=== PATIENT | female | born 1940 | race Hispanic/Latino ===

== ENCOUNTER 2017-08-24 13:24 | Inpatient (IN) | payer MEDICARE ==
[2017-08-24 14:03] LABS: Basophils # (Auto) 0.1 K/mm3 (0.0-0.1); Basophils % (Auto) 0.9 % (0.0-1.8); Eosinophils # (Auto) 0.3 K/mm3 (0.0-0.4); Eosinophils % (Auto) 3.2 % (0.0-4.3); Hematocrit 30.6 % (30.3-42.9); Hemoglobin 9.7 gm/dl (10.1-14.3); Lymphocytes # (Auto) 1.1 K/mm3 (1.2-5.4); Lymphocytes % (Auto) 11.8 % (13.4-35.0); Mean Corpuscular HGB Conc 32 % (30-34); Mean Corpuscular Hemoglobin 31 pg (28-32); Mean Corpuscular Volume 99 fl (79-97); Monocytes # (Auto) 0.5 K/mm3 (0.0-0.8); Monocytes % (Auto) 5.6 % (0.0-7.3); Platelet Count 518 K/mm3 (140-440); Red Cell Distribution Width 16.2 % (13.2-15.2)
[2017-08-24 14:15] LABS: BUN/Creatinine Ratio 31; Blood Urea Nitrogen 25 mg/dL (7-17); Calcium 8.2 mg/dL (8.4-10.2); Hemolysis Index 5
--- NOTE | 2017-08-24 14:32 | XRay Report ---
ROUTINE CHEST, TWO VIEWS: HISTORY: Shortness of breath. The lungs are mildly hyperinflated suggesting underlying emphysema. Pulmonary markings are prominent throughout the lingula which is a new finding since 07/18/15. This may represent an early pneumonia. Otherwise, the lungs are clear. No pleural effusion or pneumothorax. Heart size is within normal limits. The bony structures are demineralized. IMPRESSION: Emphysema. Probable early left lung pneumonia.
[2017-08-24] MEDS ORDERED: ATIVAN PO ONE (14:52)
[2017-08-24] MEDS ORDERED: ATROVENT IH ONE (14:55)
[2017-08-24] MEDS ORDERED: PROVENTIL IH ONE (14:55)
[2017-08-24] MEDS ORDERED: LEVAQUIN 500MG/100ML 500 MG/100 ML BAG IV ONE (15:00)
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
--- NOTE | 2017-08-24 15:12 | History and Physical Report ---
History of Present Illness Chief complaint: She cant breathe, so her doctor sent us here History of present illness: 77 YO Female with HTN, COPD, Chronic Respiratory Failure on Home Oxygen, CAD S/ P Stent, OA, Nicotine Dependence, CVA, [place], Dementia presents to ED for evaluation. Pt is confused and unable to give detailed history. Pt family at bedside and provides history. As per caregiver, the patient has experienced shortness of breath and productive cough with green sputum for the past 3 weeks , with progressively worsening symptoms over the same time frame. Patient has also experienced fever to 101.2F as well as pulse oximetry in the 70's. Pt seen and evaluated in architectural project captain's office today and found to have hypoxemic respiratory failure. Pt sent to [facility] for further care and evaluation. Pt seen and evaluated in ED and found to have Pneumonia, Acute hypoxemic Respiratory Failure, as well as COPD exacerbation. Pt prognosis discussed with family and family elects to make patient DNR. Past History Past Medical History: acute [place], arthritis, CAD, COPD, hypertension, stroke, other (HTN, COPD, Chronic Respiratory Failure on Home Oxygen, CAD S/P Stent, OA , Nicotine Dependence, CVA, [place], Dementia) Past Surgical History: , Other (cardiac stent) Social history: . denies: smoking, alcohol abuse, prescription drug abuse Family history: no significant family history (reviewed) Medications and Allergies Allergies Allergy/AdvReac Type Severity Reaction Status Date / Time Penicillins Allergy Rash Verified 10/18/14 17:40 adhesive tape AdvReac Hives Verified 07/18/15 11:38 Home Medications Medication Instructions Recorded Confirmed Last Taken Type Fluticasone/Salmeterol [Advair 1 puff IH BID 30 Days disk.w.dev 06/14/1308/24/17 Rx Diskus 250-50 mcg] Aspirin [Aspirin BABY CHEW TAB] 81 mg PO QDAY 06/10/14 08/24/17 08/24/17 History Carvedilol [Coreg] 3.125 mg PO BID 06/10/14 08/24/17 08/24/17 History Isosorbide Mononitrate [Isosorbide 30 mg PO QDAY 06/10/14 08/24/17 08/24/17 History Mononitrate ER] Lovastatin [Altoprev] 40 mg PO QDAY 06/10/14 08/24/17 08/24/17 History Doxepin [SINEquan] 50 mg PO QHS 08/24/17 08/24/17 08/24/17 History Fluticasone/Salmeterol [Advair 1 puff IH BID 08/24/17 08/24/17 08/24/17 History Diskus 250-50 mcg] Levothyroxine [Synthroid] 112 mcg PO QAM 08/24/17 08/24/17 08/24/17 History Lisinopril [Zestril TAB] 40 mg PO QDAY 08/24/17 08/24/17 08/24/17 History Ranitidine HCl [Heartburn Relief] 150 mg PO DAILY 08/24/17 08/24/17 08/24/17 History Rivastigmine Tartrate [Exelon] 1.5 mg PO BID 08/24/17 08/24/17 08/24/17 History Active Meds: Active Medications Levofloxacin/Dextrose (Levaquin 500mg/100ml) 500 mg in 100 mls @ 100 mls/hr IV ONCE ONE Stop: 08/24/17 15:59 Review of Systems Constitutional: fever, no weight loss, no weight gain, no chills Ears, nose, mouth and throat: no ear pain, no ear discharge, no tinnitis, no decreased hearing, no nose pain, no nasal congestion Breasts: no change in shape, no swelling, no mass Cardiovascular: no chest pain, no orthopnea, no palpitations, no rapid/ irregular heart beat, no edema, no syncope Respiratory: cough, cough with sputum, excessive sputum, shortness of breath, no hemoptysis Gastrointestinal: no abdominal pain, no nausea, no vomiting, no diarrhea, no constipation Genitourinary Female: no pelvic pain, no flank pain, no dysuria, no urinary frequency, no urgency Rectal: no pain, no incontinence, no bleeding Musculoskeletal: no neck stiffness, no neck pain, no shooting arm pain, no arm numbness/tingling, no low back pain, no shooting leg pain Integumentary: no rash, no pruritis, no redness, no sores, no wounds, no jaundice Neurological: no head injury, no transient paralysis, no paralysis, no weakness , no parathesias, no numbness, no tingling, no seizures Psychiatric: no anxiety, no memory loss, no change in sleep habits, no sleep disturbances, no insomnia, no hypersomnia, no change in appetite Endocrine: no cold intolerance, no heat intolerance, no polyphagia, no excessive thirst, no polydipsia, no polyuria, no nocturia Hematologic/Lymphatic: no easy bruising, no easy bleeding, no lymphadenopathy, no lymphedema, no thrombophilia Allergic/Immunologic: no urticaria, no allergic rhinitis, no wheezing, no persistent infections, no anaphylaxis Exam - Constitutional Vitals: Temp Pulse Resp BP Pulse Ox 98.1 F 89 18 115/65 86 08/24/17 13:34 08/24/17 13:34 08/24/17 13:34 08/24/17 13:34 08/24/17 13:34 General appearance: Present: mild distress, cachectic - EENT Eyes: Present: PERRL ENT: hearing intact, clear oral mucosa - Neck Neck: Present: supple, normal ROM - Respiratory Respiratory effort: labored Respiratory: bilateral: diminished, rhonchi - Cardiovascular Heart Sounds: Present: S1 & S2. Absent: rub, click - Extremities Extremities: pulses symmetrical, No edema Peripheral Pulses: within normal limits - Abdominal General gastrointestinal: Present: soft, non-tender, non-distended, normal bowel sounds Female genitourinary: Present: normal - Integumentary Integumentary: Present: clear, warm, dry - Musculoskeletal Musculoskeletal: generalized weakness - Psychiatric Psychiatric: no intact judgment & insight, no memory intact - Neurologic Neurologic: CNII-XII intact, moves all extremities, no gait normal Results - Labs CBC & Chem 7: 08/24/17 13:47 08/24/17 13:44 Labs: Abnormal lab results 08/24/17 08/24/17 Range/Units 13:44 13:47 RBC 3.10 L (3.65-5.03) M/mm3 Hgb 9.7 L (10.1-14.3) gm/dl MCV 99 H (79-97) fl RDW 16.2 H (13.2-15.2) % Plt Count 518 H (140-440) K/mm3 Lymph % (Auto) 11.8 L (13.4-35.0) % Lymph # 1.1 L (1.2-5.4) K/mm3 Seg Neutrophils % 78.5 H (40.0-70.0) % BUN 25 H (7-17) mg/dL Glucose 209 H (65-100) mg/dL Calcium 8.2 L (8.4-10.2) mg/dL Assessment and Plan - Patient Problems (1) Acute respiratory failure Current Visit: Yes Status: Acute Qualifiers: Respiratory failure complication: hypoxia Qualified Code(s): J96.01 - Acute respiratory failure with hypoxia Plan to address problem: Supplemental oxygen, nebulizer therapy, Chest x ray, NIPPV as clinically indicated, pulse oximetry. (2) COPD with exacerbation Current Visit: Yes Status: Acute Plan to address problem: IV antibiotics, IV steroids, supplemental oxygen, nebulizer therapy, chest x ray. (3) Pneumonia Current Visit: Yes Status: Acute Qualifiers: Laterality: left Plan to address problem: IV antibiotics, blood cultures, supplemental oxygen, nebulizer therapy, chest x ray, pulse oximetry, (4) Nicotine dependence Current Visit: Yes Status: Acute Qualifiers: Substance use status: in withdrawal Plan to address problem: Pt declines to pick quit date, supportive care. (5) DVT prophylaxis Current Visit: No Status: Acute Plan to address problem: SCD to BLE
[2017-08-24] MEDS ORDERED: PROVENTIL IH PRN (15:13)
[2017-08-24] MEDS ORDERED: ZOFRAN IV PRN (15:13)
[2017-08-24] MEDS ORDERED: TYLENOL PO PRN (15:13)
[2017-08-24] MEDS ORDERED: SODIUM CHLORIDE FLUSH SYRINGE 10 ML IV PRN (15:13)
[2017-08-24] MEDS ORDERED: NON-FORMULARY (Ipratropium Bromide [Atrovent Hfa] 12.9 GM) IH PRN (15:18)
[2017-08-24] MEDS ORDERED: ULTRAM PO PRN (15:18)
[2017-08-24] MEDS ORDERED: NORCO 5/325 PO PRN (15:18)
--- NOTE | 2017-08-24 16:28 | XRay Report ---
FINAL REPORT EXAM: XR KNEE 3V LT HISTORY: pain after fall TECHNIQUE: 3 views of left knee. PRIORS: None. FINDINGS: Diffuse osteopenia. Marked medial and mild patellofemoral joint space narrowing and variable marginal spurring in all 3 joint compartments, most pronounced in the medial joint space. No apparent fracture or dislocation. Soft tissues grossly unremarkable. IMPRESSION: 1. No acute osseous abnormality. 2. Degenerative changes.
[2017-08-24] MEDS ORDERED: LEVAQUIN 750MG/150ML 750 MG/150 ML BAG IV SCH (18:00)
[2017-08-24] MEDS ORDERED: NON-FORMULARY (Fluticasone/Salmeterol [Advair Diskus 250-50 Mcg] 1 PUFF) IH SCH (22:00)
[2017-08-24] MEDS ORDERED: NON-FORMULARY (Ramipril [Ramipril] 10 MG) PO SCH (22:00)
[2017-08-24] MEDS: PULMICORT IH SCH (22:30)
[2017-08-24] MEDS: BROVANA NEBU IH SCH (22:30)
[2017-08-24] MEDS: NEURONTIN PO SCH (22:32)
[2017-08-24] MEDS: COREG PO SCH (22:33)
[2017-08-24] MEDS: ZESTRIL PO SCH (22:33)
[2017-08-24] MEDS: PRAVACHOL PO SCH (22:34)
[2017-08-24] MEDS: SODIUM CHLORIDE FLUSH SYRINGE 10 ML IV SCH (22:34)
[2017-08-25] MEDS: PULMICORT IH SCH ×2 (07:31→20:56)
[2017-08-25] MEDS: BROVANA NEBU IH SCH ×2 (07:31→20:56)
[2017-08-25] MEDS: COREG PO SCH ×2 (08:02→23:53)
[2017-08-25] MEDS: NEURONTIN PO SCH ×3 (08:02→23:52)
[2017-08-25] MEDS: IMDUR PO SCH (08:03)
[2017-08-25] MEDS: SPIRIVA IH SCH (09:15)
[2017-08-25] MEDS ORDERED: NON-FORMULARY (Ranitidine Hcl [Zantac] 300 MG) PO SCH (10:00)
[2017-08-25] MEDS ORDERED: NON-FORMULARY (Lovastatin [Altoprev] 40 MG) PO SCH (10:00)
[2017-08-25] MEDS ORDERED: NACL ONE ×2 (13:32→13:38)
[2017-08-25] MEDS: ZOLOFT PO SCH (15:51)
[2017-08-25] MEDS: ZESTRIL PO SCH ×2 (15:52→23:55)
[2017-08-25] MEDS: PEPCID PO SCH (15:52)
[2017-08-25] MEDS: BABY ASPIRIN PO SCH (15:53)
[2017-08-25] MEDS: SODIUM CHLORIDE FLUSH SYRINGE 10 ML IV SCH ×2 (15:54→23:55)
[2017-08-25] MEDS: NORVASC PO SCH (16:04)
--- NOTE | 2017-08-25 16:28 | Cat Scan Report ---
FINAL REPORT EXAM: CT ANGIO CHEST HISTORY: pulmonary embolisim TECHNIQUE: Spiral CTA of the chest after the uneventful administration of IV contrast. Multiplanar reformations. 100 mL Omnipaque IV. PRIORS: None. FINDINGS: Chest: The main and bilateral proximal pulmonary arteries are normally opacified without endoluminal filling defects. Diffuse coronary artery calcifications. No apparent aneurysm, pseudoaneurysm or aortic dissection. No significant lymph node enlargement or axillary adenopathy. Lungs show diffuse, bullous and paraseptal emphysematous changes bilaterally. Some volume loss in the left hemithorax, with possible mucous plugging in central bronchi to mid-lower lung. Variable, but diffuse reticulo-nodular, pleuro-parenchymal opacities in the left mid-lower lung may represent postinflammatory change, fibrosis or scarring. No discrete parenchymal mass, focal consolidation or pleural effusions. No apparent pneumothorax. Probable bilateral renal cysts, largest measuring approximately 1.7 cm in the right kidney. Remainder of visualized bowel grossly unremarkable. Diffuse osteopenia and degenerative change in the thoracic spine. IMPRESSION: 1. No evidence of large vessel or central pulmonary emboli. Coronary artery calcifications. 2. Diffuse emphysematous change, with associated volume loss and probable pleuro-parenchymal postinflammatory change, fibrosis or scarring in left hemithorax. Correlate clinically.
--- NOTE | 2017-08-25 21:43 | Progress Note ---
Assessment and Plan Assessment and plan: 77 YO Female with HTN, COPD, Chronic Respiratory Failure on Home Oxygen, CAD S/ P Stent, OA, Nicotine Dependence, CVA, [place], Dementia presents to ED for evaluation. Pt is confused and unable to give detailed history. Pt family at bedside and provides history. As per caregiver, the patient has experienced shortness of breath and productive cough with green sputum for the past 3 weeks , with progressively worsening symptoms over the same time frame. Patient has also experienced fever to 101.2F as well as pulse oximetry in the 70's. Pt seen and evaluated in radio repairer domestic's office today and found to have hypoxemic respiratory failure. Pt sent to [facility] for further care and evaluation. Pt seen and evaluated in ED and found to have Pneumonia, Acute hypoxemic Respiratory Failure, as well as COPD exacerbation. Pt prognosis discussed with family and family elects to make patient DNR. - Patient Problems (1) Acute respiratory failure Elevated D.dimer - check CTA AND lower ext DVT Supplemental oxygen, nebulizer therapy, Chest x ray, NIPPV as clinically indicated, pulse oximetry. Pulmonary consult wean oxygen (2) COPD with exacerbation IV antibiotics, IV steroids, supplemental oxygen, nebulizer therapy, chest x ray. (3) Pneumonia IV antibiotics, blood cultures, supplemental oxygen, nebulizer therapy, chest x ray, pulse oximetry, (4) Nicotine dependence Pt declines to pick quit date, supportive care. (5) DVT prophylaxis Current Visit: No Status: Acute Plan to address problem: SCD to BLE Anticipate discharge in 24-48hrs History Interval history: Patient seen and examined, remains with mild distress, exertional dyspnea. very lathergic. Denies any chest pain. nausea or vomiting. Hospitalist Physical - Constitutional Vitals: Temp Pulse Resp BP Pulse Ox 98.6 F 67 14 132/48 96 08/24/17 20:38 08/25/17 20:47 08/25/17 20:47 08/24/17 22:33 08/25/17 20:47 General appearance: Present: mild distress, cachectic, other (frail appearing) - EENT Eyes: Present: PERRL, EOM intact ENT: hearing intact, clear oral mucosa - Neck Neck: Present: supple, normal ROM - Respiratory Respiratory effort: other (diminshed) Respiratory: bilateral: diminished - Cardiovascular Rhythm: regular Heart Sounds: Present: S1 & S2. Absent: systolic murmur - Extremities Extremities: pulses intact (lower ext by doppler only), pulses symmetrical, No edema, normal temperature, normal color Peripheral Pulses: abnormal (decreased) - Abdominal General gastrointestinal: soft, non-tender, non-distended - Integumentary Integumentary: Present: clear, dry, pale - Psychiatric Psychiatric: appropriate mood/affect - Neurologic Neurologic: CNII-XII intact Results - Labs CBC & Chem 7: 08/24/17 13:47 08/24/17 13:44 Labs: Laboratory Last Values WBC 9.3 K/mm3 (4.5-11.0) 08/24/17 13:47 RBC 3.10 M/mm3 (3.65-5.03) L 08/24/17 13:47 Hgb 9.7 gm/dl (10.1-14.3) L 08/24/17 13:47 Hct 30.6 % (30.3-42.9) 08/24/17 13:47 MCV 99 fl (79-97) H 08/24/17 13:47 MCH 31 pg (28-32) 08/24/17 13:47 MCHC 32 % (30-34) 08/24/17 13:47 RDW 16.2 % (13.2-15.2) H 08/24/17 13:47 Plt Count 518 K/mm3 (140-440) H 08/24/17 13:47 Lymph % (Auto) 11.8 % (13.4-35.0) L 08/24/17 13:47 [place] % (Auto) 5.6 % (0.0-7.3) 08/24/17 13:47 Eos % (Auto) 3.2 % (0.0-4.3) 08/24/17 13:47 Baso % (Auto) 0.9 % (0.0-1.8) 08/24/17 13:47 Lymph # 1.1 K/mm3 (1.2-5.4) L 08/24/17 13:47 [place] # 0.5 K/mm3 (0.0-0.8) 08/24/17 13:47 Eos # 0.3 K/mm3 (0.0-0.4) 08/24/17 13:47 Baso # 0.1 K/mm3 (0.0-0.1) 08/24/17 13:47 Seg Neutrophils % 78.5 % (40.0-70.0) H 08/24/17 13:47 Seg Neutrophils # 7.3 K/mm3 (1.8-7.7) 08/24/17 13:47 D-Dimer 732.74 ng/mlDDU (0-234) H 08/24/17 15:28 Sodium 138 mmol/L (137-145) 08/24/17 13:44 Potassium 3.7 mmol/L (3.6-5.0) 08/24/17 13:44 Chloride 98.3 mmol/L (98-107) 08/24/17 13:44 Carbon Dioxide 27 mmol/L (22-30) 08/24/17 13:44 Anion Gap 16 mmol/L 08/24/17 13:44 BUN 25 mg/dL (7-17) H 08/24/17 13:44 Creatinine 0.8 mg/dL (0.7-1.2) 08/24/17 13:44 Estimated GFR > 60 ml/min 08/24/17 13:44 BUN/Creatinine Ratio 31 % 08/24/17 13:44 Glucose 209 mg/dL (65-100) H 08/24/17 13:44 Calcium 8.2 mg/dL (8.4-10.2) L 08/24/17 13:44 - Imaging and Cardiology CT scan - chest: pending
[2017-08-25] MEDS: PRAVACHOL PO SCH (23:53)
[2017-08-26] MEDS: BROVANA NEBU IH SCH ×2 (07:34→19:17)
[2017-08-26] MEDS: PULMICORT IH SCH ×2 (07:34→19:17)
[2017-08-26] MEDS: SPIRIVA IH SCH (08:50)
[2017-08-26] MEDS: NEURONTIN PO SCH ×3 (08:51→20:35)
[2017-08-26] MEDS: PEPCID PO SCH (09:53)
[2017-08-26] MEDS: COREG PO SCH ×2 (09:54→22:09)
[2017-08-26] MEDS: ZOLOFT PO SCH (09:54)
[2017-08-26] MEDS: BABY ASPIRIN PO SCH (09:54)
[2017-08-26] MEDS: NORVASC PO SCH (09:55)
[2017-08-26] MEDS: IMDUR PO SCH (09:55)
[2017-08-26] MEDS: ZESTRIL PO SCH ×2 (09:55→22:10)
[2017-08-26] MEDS: SODIUM CHLORIDE FLUSH SYRINGE 10 ML IV SCH ×2 (09:56→22:11)
[2017-08-26] MEDS: LEVAQUIN PO SCH (10:48)
--- NOTE | 2017-08-26 12:46 | Event Note ---
Date: 08/26/[address] Lima in office. Will change consult to his group. Thanks.
--- NOTE | 2017-08-26 14:44 | Progress Note ---
Assessment and Plan - Patient Problems (1) Acute respiratory failure Current Visit: Yes Status: Acute Qualifiers: Respiratory failure complication: hypoxia Qualified Code(s): J96.01 - Acute respiratory failure with hypoxia Plan to address problem: Acute respiratory failure secondary to COPD exacerbation and pneumonia. Continue nebulizers oxygen, antibiotics Levaquin and steroids. She clearly not ready to go home today. I think patient has advanced COPD however. Physical exam appears cachectic with anorexia increased bony prominences in's shoulders and abdomen (2) COPD with exacerbation Current Visit: Yes Status: Acute Plan to address problem: COPD appears to be in advanced stages continue nebulizer steroid taper empiric antibiotic coverage Brovana (3) Nicotine dependence Current Visit: Yes Status: Acute Qualifiers: Substance use status: in withdrawal Plan to address problem: Educated on importance of smoking cessation. Patient not motivated to stop now (4) Pneumonia Current Visit: Yes Status: Acute Qualifiers: Laterality: left Plan to address problem: Most likely community-acquired pneumonia continue Levaquin. Patient is not in sepsis. (5) HTN (hypertension) Current Visit: No Status: Chronic Plan to address problem: Fairly well controlled. History Interval history: Patient today upset states she was told she was going home today. Patient is not into any acute distress right now but remains into with significant rhonchi and rales. Patient is going down for ultrasound of the lower extremity arterial evaluation of the lower extremity. I could not appreciate any cold interval exam and patient did have a palpable pulse dorsalis pedis +2 posterior tibial +1 Hospitalist Physical - Constitutional Vitals: Temp Pulse Resp BP Pulse Ox 98.0 F 62 16 90/67 96 08/26/17 07:55 08/26/17 10:00 08/26/17 10:00 08/26/17 09:55 08/26/17 10:00 General appearance: Present: mild distress, cachectic, other (frail appearing) - EENT Eyes: Present: PERRL, EOM intact ENT: clear oral mucosa, poor dentition, no oropharyngeal erythema, no thrush, no ulcerations, no edentulous - Neck Neck: Present: supple, normal ROM, carotid bruits. Absent: enlarged thyroid, masses or JVD - Respiratory Respiratory: bilateral: diminished, rales, rhonchi - Cardiovascular Rhythm: regular - Extremities Extremities: no ischemia, pulses intact, pulses symmetrical, No edema, normal temperature, normal color, Full ROM Extremity abnormal: other ( i see no evidence of decrease vascular supply.) - Abdominal General gastrointestinal: soft, non-tender, non-distended - Psychiatric Psychiatric: appropriate mood/affect, cooperative, agitated - Neurologic Neurologic: CNII-XII intact, moves all extremities Results - Labs CBC & Chem 7: 08/24/17 13:47 08/24/17 13:44 Labs: Laboratory Last Values WBC 9.3 K/mm3 (4.5-11.0) 08/24/17 13:47 RBC 3.10 M/mm3 (3.65-5.03) L 08/24/17 13:47 Hgb 9.7 gm/dl (10.1-14.3) L 08/24/17 13:47 Hct 30.6 % (30.3-42.9) 08/24/17 13:47 MCV 99 fl (79-97) H 08/24/17 13:47 MCH 31 pg (28-32) 08/24/17 13:47 MCHC 32 % (30-34) 08/24/17 13:47 RDW 16.2 % (13.2-15.2) H 08/24/17 13:47 Plt Count 518 K/mm3 (140-440) H 08/24/17 13:47 Lymph % (Auto) 11.8 % (13.4-35.0) L 08/24/17 13:47 [place] % (Auto) 5.6 % (0.0-7.3) 08/24/17 13:47 Eos % (Auto) 3.2 % (0.0-4.3) 08/24/17 13:47 Baso % (Auto) 0.9 % (0.0-1.8) 08/24/17 13:47 Lymph # 1.1 K/mm3 (1.2-5.4) L 08/24/17 13:47 [place] # 0.5 K/mm3 (0.0-0.8) 08/24/17 13:47 Eos # 0.3 K/mm3 (0.0-0.4) 08/24/17 13:47 Baso # 0.1 K/mm3 (0.0-0.1) 08/24/17 13:47 Seg Neutrophils % 78.5 % (40.0-70.0) H 08/24/17 13:47 Seg Neutrophils # 7.3 K/mm3 (1.8-7.7) 08/24/17 13:47 D-Dimer 732.74 ng/mlDDU (0-234) H 08/24/17 15:28 Sodium 138 mmol/L (137-145) 08/24/17 13:44 Potassium 3.7 mmol/L (3.6-5.0) 08/24/17 13:44 Chloride 98.3 mmol/L (98-107) 08/24/17 13:44 Carbon Dioxide 27 mmol/L (22-30) 08/24/17 13:44 Anion Gap 16 mmol/L 08/24/17 13:44 BUN 25 mg/dL (7-17) H 08/24/17 13:44 Creatinine 0.8 mg/dL (0.7-1.2) 08/24/17 13:44 Estimated GFR > 60 ml/min 08/24/17 13:44 BUN/Creatinine Ratio 31 % 08/24/17 13:44 Glucose 209 mg/dL (65-100) H 08/24/17 13:44 Calcium 8.2 mg/dL (8.4-10.2) L 08/24/17 13:44
[2017-08-26] MEDS: PRAVACHOL PO SCH (22:09)
[2017-08-27] MEDS: BROVANA NEBU IH SCH ×2 (07:38→22:00)
[2017-08-27] MEDS: PULMICORT IH SCH ×2 (07:38→22:00)
[2017-08-27] MEDS: SPIRIVA IH SCH (07:38)
[2017-08-27] MEDS: NEURONTIN PO SCH ×3 (08:37→20:41)
[2017-08-27] MEDS: PEPCID PO SCH (09:02)
[2017-08-27] MEDS: BABY ASPIRIN PO SCH (09:03)
[2017-08-27] MEDS: NORVASC PO SCH (09:04)
[2017-08-27] MEDS: ZOLOFT PO SCH (09:04)
[2017-08-27] MEDS: ZESTRIL PO SCH ×2 (09:04→22:47)
[2017-08-27] MEDS: COREG PO SCH ×2 (09:05→22:46)
[2017-08-27] MEDS: IMDUR PO SCH (09:05)
[2017-08-27] MEDS: SODIUM CHLORIDE FLUSH SYRINGE 10 ML IV SCH ×2 (09:06→22:48)
--- NOTE | 2017-08-27 10:01 | Consultation ---
History of Present Illness Consult date: 08/27/17 Requesting physician: GUY NEVES Reason for consult: COPD (with acute exacerbation), pneumonia, other (acute on chronic respiratory faillure) History of present illness: 77 YO Female with HTN, COPD, Chronic Respiratory Failure on Home Oxygen, CAD S/ P Stent, OA, Nicotine Dependence, CVA, PR, Dementia presents to ED for evaluation. Pt is confused and unable to give detailed history. Pt family at bedside and provides history. As per caregiver, the patient has experienced shortness of breath and productive cough with green sputum for the past 3 weeks , with progressively worsening symptoms over the same time frame. Patient has also experienced fever to 101.2F as well as pulse oximetry in the 70's. Pt seen and evaluated in chart picker's office on Mondayand found to have hypoxemic respiratory failure. Pt sent to [facility] for further care and evaluation. Pt seen and evaluated in ED and found to have Pneumonia, Acute hypoxemic Respiratory Failure, as well as COPD exacerbation. Past History Past Medical History: acute PR, arthritis, CAD, COPD, hypertension, stroke, other (HTN, COPD, Chronic Respiratory Failure on Home Oxygen, CAD S/P Stent, OA , Nicotine Dependence, CVA, PR, Dementia) Past Surgical History: , Other (cardiac stent) Social history: . denies: smoking, alcohol abuse, prescription drug abuse Family history: no significant family history (reviewed) Medications and Allergies Allergies Allergy/AdvReac Type Severity Reaction Status Date / Time Penicillins Allergy Rash Verified 10/18/14 17:40 adhesive tape AdvReac Hives Verified 07/18/15 11:38 Home Medications Medication Instructions Recorded Confirmed Last Taken Type Fluticasone/Salmeterol [Advair 1 puff IH BID 30 Days disk.w.dev 06/14/1308/24/17 Rx Diskus 250-50 mcg] Aspirin [Aspirin BABY CHEW TAB] 81 mg PO QDAY 06/10/14 08/24/17 08/24/17 History Carvedilol [Coreg] 3.125 mg PO BID 06/10/14 08/24/17 08/24/17 History Isosorbide Mononitrate [Isosorbide 30 mg PO QDAY 06/10/14 08/24/17 08/24/17 History Mononitrate ER] Lovastatin [Altoprev] 40 mg PO QDAY 06/10/14 08/24/17 08/24/17 History Doxepin [SINEquan] 50 mg PO QHS 08/24/17 08/24/17 08/24/17 History Fluticasone/Salmeterol [Advair 1 puff IH BID 08/24/17 08/24/17 08/24/17 History Diskus 250-50 mcg] Levothyroxine [Synthroid] 112 mcg PO QAM 08/24/17 08/24/17 08/24/17 History Lisinopril [Zestril TAB] 40 mg PO QDAY 08/24/17 08/24/17 08/24/17 History Ranitidine HCl [Heartburn Relief] 150 mg PO DAILY 08/24/17 08/24/17 08/24/17 History Rivastigmine Tartrate [Exelon] 1.5 mg PO BID 08/24/17 08/24/17 08/24/17 History Active Meds: Active Medications Acetaminophen (Tylenol) 650 mg PO Q4H PRN PRN Reason: Pain MILD(1-3)/Fever >100.5/LAROSE Acetaminophen/Hydrocodone Bitart ([place] 5/325) 1 each PO Q6HR PRN PRN Reason: Pain Albuterol (Proventil) 2.5 mg IH Q4HRT PRN PRN Reason: Shortness Of Breath Amlodipine Besylate (Norvasc) 5 mg PO QDAY [facility] Last Admin: 08/27/17 09:04 Dose: Not Given Arformoterol Tartrate (Brovana Nebu) 15 mcg IH Q12HRT [facility] Last Admin: 08/27/17 07:38 Dose: 15 mcg Aspirin (Baby Aspirin) 81 mg PO QDAY [facility] Last Admin: 08/27/17 09:03 Dose: 81 mg Budesonide (Pulmicort) 0.5 mg IH Q12HRT [facility] Last Admin: 08/27/17 07:38 Dose: 0.5 mg Carvedilol (Coreg) 3.125 mg PO BID [facility] Last Admin: 08/27/17 09:05 Dose: Not Given Famotidine (Pepcid) 40 mg PO QDAY [facility] Last Admin: 08/27/17 09:02 Dose: 40 mg Gabapentin (Neurontin) 200 mg PO TID [facility] Last Admin: 08/27/17 08:37 Dose: 200 mg Isosorbide Mononitrate (Imdur) 30 mg PO QDAY [facility] Last Admin: 08/27/17 09:05 Dose: Not Given Levofloxacin (Levaquin) 750 mg PO Q48HR [facility] Last Admin: 08/26/17 10:48 Dose: 750 mg Lisinopril (Zestril) 20 mg PO BID [facility] Last Admin: 08/27/17 09:04 Dose: Not Given Methylprednisolone Sodium Succinate (Solu-Medrol) 40 mg IV Q12HR [facility] Last Admin: 08/27/17 09:03 Dose: 40 mg Ondansetron HCl (Zofran) 4 mg IV Q8H PRN PRN Reason: Nausea And Vomiting Pravastatin Sodium (Pravachol) 40 mg PO QHS [facility] Last Admin: 08/26/17 22:09 Dose: 40 mg Sertraline HCl (Zoloft) 50 mg PO QDAY [facility] Last Admin: 08/27/17 09:04 Dose: 50 mg Sodium Chloride (Sodium Chloride Flush Syringe 10 Ml) 10 ml IV BID [facility] Last Admin: 08/27/17 09:06 Dose: 10 ml Sodium Chloride (Sodium Chloride Flush Syringe 10 Ml) 10 ml IV PRN PRN PRN Reason: LINE FLUSH Last Admin: 08/26/17 10:49 Dose: 10 ml Tiotropium [place] (Spiriva) 1 puff IH QDAY [facility] Last Admin: 08/27/17 07:38 Dose: 1 puff Tramadol HCl (Ultram) 50 mg PO Q4HR PRN PRN Reason: Pain Physical Examination Vital signs: Vital Signs Temp Pulse Resp BP Pulse Ox 98.1 F 89 18 115/65 86 08/24/17 13:34 08/24/17 13:34 08/24/17 13:34 08/24/17 13:34 08/24/17 13:34 Results - Laboratory Findings CBC and BMP: 08/24/17 13:47 08/24/17 13:44 PT/INR, D-dimer D-Dimer 732.74 ng/mlDDU (0-234) H 08/24/17 15:28 Abnormal lab findings: Abnormal Labs 08/24/17 08/24/17 08/24/17 13:44 13:47 15:28 RBC 3.10 L Hgb 9.7 L MCV 99 H RDW 16.2 H Plt Count 518 H Lymph % (Auto) 11.8 L Lymph # 1.1 L Seg Neutrophils % 78.5 H D-Dimer 732.74 H BUN 25 H Glucose 209 H Calcium 8.2 L Assessment and Plan Acute hypoxemic respiratory failure Pneumonia COPD with acute exacerbation
--- NOTE | 2017-08-27 13:55 | Progress Note ---
Assessment and Plan - Patient Problems (1) Acute respiratory failure Current Visit: Yes Status: Acute Qualifiers: Respiratory failure complication: hypoxia Qualified Code(s): J96.01 - Acute respiratory failure with hypoxia Plan to address problem: Acute respiratory failure secondary to COPD exacerbation and pneumonia. Continue nebulizers oxygen, antibiotics Levaquin and steroids. She still not ready for discharge. Patient is significant wheezing and cough. Suspect home 1 -2 days. Patient has end-stage COPD. I did speak with family patient is on 5 L at home. I do not see COPD getting any better especially as patient continues to smoke Today. I think patient has advanced COPD however. (2) COPD with exacerbation Current Visit: Yes Status: Acute Plan to address problem: COPD appears to be in advanced stages continue nebulizer steroid taper empiric antibiotic coverage Analia (3) Nicotine dependence Current Visit: Yes Status: Acute Qualifiers: Substance use status: in withdrawal Plan to address problem: Educated on importance of smoking cessation. Patient not motivated to stop now (4) Pneumonia Current Visit: Yes Status: Acute Qualifiers: Laterality: left Plan to address problem: Continue empiric antibiotic coverage. Patient has less cough ryan afebrile (5) HTN (hypertension) Current Visit: No Status: Chronic Plan to address problem: Fairly well controlled. History Interval history: Patient much more calm today much less agitated clinically looks much better today. No productive cough no fever chills still has advanced COPD wheezing coughing Hospitalist Physical - Constitutional Vitals: Temp Pulse Resp BP Pulse Ox 96.0 F L 51 L 16 97/54 94 08/27/17 07:48 08/27/17 10:00 08/27/17 10:00 08/27/17 09:05 08/27/17 10:00 General appearance: Present: mild distress, cachectic, other (frail appearing) - EENT Eyes: Present: PERRL, EOM intact ENT: hearing intact, clear oral mucosa - Neck Neck: Present: supple, normal ROM - Respiratory Respiratory: bilateral: diminished, wheezing - Cardiovascular Rhythm: regular Heart Sounds: Present: S1 & S2 - Extremities Extremities: no ischemia, pulses intact Peripheral Pulses: within normal limits - Abdominal General gastrointestinal: soft, non-tender, normal bowel sounds, other (scaphoid ), no distended, no rigid, no hepatomegaly - Integumentary Integumentary: Present: clear, warm, dry - Psychiatric Psychiatric: appropriate mood/affect - Neurologic Neurologic: CNII-XII intact, other (poor cognition) Results - Labs CBC & Chem 7: 08/24/17 13:47 08/24/17 13:44 Labs: Laboratory Last Values WBC 9.3 K/mm3 (4.5-11.0) 08/24/17 13:47 RBC 3.10 M/mm3 (3.65-5.03) L 08/24/17 13:47 Hgb 9.7 gm/dl (10.1-14.3) L 08/24/17 13:47 Hct 30.6 % (30.3-42.9) 08/24/17 13:47 MCV 99 fl (79-97) H 08/24/17 13:47 MCH 31 pg (28-32) 08/24/17 13:47 MCHC 32 % (30-34) 08/24/17 13:47 RDW 16.2 % (13.2-15.2) H 08/24/17 13:47 Plt Count 518 K/mm3 (140-440) H 08/24/17 13:47 Lymph % (Auto) 11.8 % (13.4-35.0) L 08/24/17 13:47 [place] % (Auto) 5.6 % (0.0-7.3) 08/24/17 13:47 Eos % (Auto) 3.2 % (0.0-4.3) 08/24/17 13:47 Baso % (Auto) 0.9 % (0.0-1.8) 08/24/17 13:47 Lymph # 1.1 K/mm3 (1.2-5.4) L 08/24/17 13:47 [place] # 0.5 K/mm3 (0.0-0.8) 08/24/17 13:47 Eos # 0.3 K/mm3 (0.0-0.4) 08/24/17 13:47 Baso # 0.1 K/mm3 (0.0-0.1) 08/24/17 13:47 Seg Neutrophils % 78.5 % (40.0-70.0) H 08/24/17 13:47 Seg Neutrophils # 7.3 K/mm3 (1.8-7.7) 08/24/17 13:47 D-Dimer 732.74 ng/mlDDU (0-234) H 08/24/17 15:28 Sodium 138 mmol/L (137-145) 08/24/17 13:44 Potassium 3.7 mmol/L (3.6-5.0) 08/24/17 13:44 Chloride 98.3 mmol/L (98-107) 08/24/17 13:44 Carbon Dioxide 27 mmol/L (22-30) 08/24/17 13:44 Anion Gap 16 mmol/L 08/24/17 13:44 BUN 25 mg/dL (7-17) H 08/24/17 13:44 Creatinine 0.8 mg/dL (0.7-1.2) 08/24/17 13:44 Estimated GFR > 60 ml/min 08/24/17 13:44 BUN/Creatinine Ratio 31 % 08/24/17 13:44 Glucose 209 mg/dL (65-100) H 08/24/17 13:44 Calcium 8.2 mg/dL (8.4-10.2) L 08/24/17 13:44
[2017-08-27] MEDS: PRAVACHOL PO SCH (22:48)
[2017-08-28] MEDS: COREG PO SCH ×2 (03:17→09:38)
[2017-08-28] MEDS: ZESTRIL PO SCH ×2 (03:18→09:40)
[2017-08-28] MEDS: NEURONTIN PO SCH ×2 (08:13→14:05)
[2017-08-28 08:28] VITALS: BP 107/67
[2017-08-28] MEDS: PULMICORT IH SCH (08:35)
[2017-08-28] MEDS: BROVANA NEBU IH SCH (08:35)
[2017-08-28] MEDS: PEPCID PO SCH (09:36)
[2017-08-28] MEDS: LEVAQUIN PO SCH (09:36)
[2017-08-28] MEDS: ZOLOFT PO SCH (09:36)
[2017-08-28] MEDS: BABY ASPIRIN PO SCH (09:36)
[2017-08-28] MEDS: NORVASC PO SCH (09:39)
[2017-08-28] MEDS: IMDUR PO SCH (09:39)
[2017-08-28] MEDS: SODIUM CHLORIDE FLUSH SYRINGE 10 ML IV SCH (09:40)
--- NOTE | 2017-08-28 10:46 | Discharge Summary ---
Providers - Providers Date of Admission: 08/24/17 15:13 Attending physician: GUY NEVES MD 08/25/17 08:45 Consult to Dietitian/Nutrition [CONS] Routine Physician Instructions: Reason For Exam: Reason for Consult: Poor oral intake 08/26/17 12:44 Consult to Physician [CONS] Routine Comment: ALEX Consulting Provider: DANIEL HOUSTNO Physician Instructions: CALLED CONSULT TO @[id number](FELICITA) Reason For Exam: copd, pneumonia, pt. of yours Primary care physician: AUDIT CLERKS SUPERVISOR Hospitalization Reason for admission: COPD EXACERBATION Condition: Fair Hospital course: 77 YO Female with HTN, COPD, Chronic Respiratory Failure on Home Oxygen, CAD S/ P Stent, OA, Nicotine Dependence, CVA, [place], Dementia presents to ED for evaluation. Pt is confused and unable to give detailed history. Pt family at bedside and provides history. As per caregiver, the patient has experienced shortness of breath and productive cough with green sputum for the past 3 weeks , with progressively worsening symptoms over the same time frame. Patient has also experienced fever to 101.2F as well as pulse oximetry in the 70's. Pt seen and evaluated in adjunct spanish instructor's office on Monday and found to have hypoxemic respiratory failure. Pt sent to [facility] for further care and evaluation. Pt seen and evaluated in ED and found to have Pneumonia, Acute hypoxemic Respiratory Failure, as well as COPD exacerbation. patient was started on treatment with Pna and also noted to have advance COPD. she was made DNR by family. I did speak with the daughter who states that patient quit tobacco use years ago and is non ambulatory but gets around with wheel chair. Tapering dose of steroids was recommended and need to follow with pulmonary outpatient. We also recommended out patient follow up with vascular for suspected lower ext disease Discharge Diagnosis (1) Acute hypoxemic respiratory failure (2) COPD with exacerbation (3) Nicotine dependence (4) Pneumonia (5) HTN (hypertension) Disposition: DC/[place]-06 HOME UNDER HOME HL[facility] Time spent for discharge: 35 mins Core Measure Documentation - Palliative Care Palliative Care/ Comfort Measures: Not Applicable - Core Measures Any of the following diagnoses?: none - VTE Discharge Requirements Deep Vein Thrombosis/Pulmonary Embolism Present on Admission: No Exam - Physical Exam Narrative exam: eneral appearance: Present: mild distress, cachectic, other (frail appearing) - EENT Eyes: Present: PERRL, EOM intact ENT: hearing intact, clear oral mucosa - Neck Neck: Present: supple, normal ROM - Respiratory Respiratory effort: other (diminshed) Respiratory: bilateral: diminished - Cardiovascular Rhythm: regular Heart Sounds: Present: S1 & S2. Absent: systolic murmur - Extremities Extremities: pulses intact (lower ext by doppler only), pulses symmetrical, No edema, normal temperature, normal color Peripheral Pulses: abnormal (decreased) - Abdominal General gastrointestinal: soft, non-tender, non-distended - Integumentary Integumentary: Present: clear, dry, pale - Psychiatric Psychiatric: appropriate mood/affect - Neurologic Neurologic: CNII-XII intact - Constitutional Vitals: Temp Pulse Resp BP Pulse Ox 97.7 F 78 18 107/67 96 08/28/17 07:59 08/28/17 09:40 08/28/17 08:39 08/28/17 09:40 08/28/17 08:39 Plan Activity: advance as tolerated, fall precautions Diet: low fat Special Instructions: record daily weights Follow up with: PRIMARY CARE, [Primary Care Provider] - 7 Days DANIEL HOUSTON MD [Staff Physician] - 7 Days RANDY VALLADARES MD [Staff Physician] - 7 Days Prescriptions: ALBUTEROL NEB's [Proventil 0.083% NEBS] 2.5 mg IH Q4HRT PRN #90 nebu PRN Reason: Shortness Of Breath amLODIPine [Norvasc] 5 mg PO QDAY #30 tablet Fluticasone/Salmeterol [Advair Diskus 250-50 mcg] 1 puff IH BID #30 blst.w.dev Gabapentin [Neurontin] 200 mg PO TID #90 capsule HYDROcodone/APAP 5-325 [[place] 5-325 mg TAB] 1 each PO Q6HR PRN #14 tablet PRN Reason: Pain Prednisone [predniSONE 10 mg (6-Day Pack, 21 Tabs)] 10 mg PO .TAPER #1 tab.ds.pk Sertraline [Zoloft] 50 mg PO QDAY #30 tablet Tiotropium [Spiriva] 1 puff IH QDAY #1 cap traMADol [Ultram 50 MG tab] 50 mg PO Q4HR PRN #14 tablet PRN Reason: Pain Levofloxacin [Levaquin TAB] 750 mg PO Q48HR #3 tablet
--- NOTE | 2017-08-28 14:44 | Progress Note ---
Assessment and Plan Acute hypoxemic respiratory failure Pneumonia COPD with acute exacerbation Tobacco Use Disorder HTN - continue systemic steroids taper - wean supplemental oxygen to keep O2 Sats > 90% - continue bronchodilators with pulmonary hygiene per RT - continue GI & VTE prophylaxis - continue empiric AB's to complete 5-7 day course - continue other care per attending / other cobnsultants ... d/c planning ongoing concurrently ...25" Subjective Date of service: 08/28/17 Principal diagnosis: COPD (with acute exacerbation), pneumonia, other (acute on chronic respirat Interval history: Patient is seen today for: COPD (with acute exacerbation); pneumonia; (acute on chronic respiratory faillure) Seen and examined at bedside; 24 hour events reviewed; nursing and respiratory care staff consulted; resting peacefuly in bend; responds to name; No emesis or overt aspiration; on supplemental oxygen therapy Objective Vital Signs - 12hr 08/28/17 08/28/17 08/28/17 03:17 03:18 06:38 Temperature Pulse Rate 55 L 55 L 53 L Pulse Rate [ Bilateral Throughout] Respiratory Rate Respiratory Rate [Bilateral Throughout] Blood Pressure 160/65 160/65 Blood Pressure 133/42 [Right] O2 Sat by Pulse Oximetry 08/28/17 08/28/17 08/28/17 07:59 08:35 08:36 Temperature 97.7 F Pulse Rate Pulse Rate [ 77 78 Bilateral Throughout] Respiratory 20 Rate Respiratory 18 18 Rate [Bilateral Throughout] Blood Pressure 107/67 Blood Pressure [Right] O2 Sat by Pulse 96 Oximetry 08/28/17 08/28/17 08/28/17 09:38 09:39 09:40 Temperature Pulse Rate 78 78 78 Pulse Rate [ Bilateral Throughout] Respiratory Rate Respiratory Rate [Bilateral Throughout] Blood Pressure 107/67 107/67 107/67 Blood Pressure [Right] O2 Sat by Pulse Oximetry 08/28/17 10:00 Temperature Pulse Rate 52 L Pulse Rate [ Bilateral Throughout] Respiratory 18 Rate Respiratory Rate [Bilateral Throughout] Blood Pressure Blood Pressure [Right] O2 Sat by Pulse 96 Oximetry Constitutional: no acute distress Eyes: non-icteric ENT: oropharynx moist Neck: supple, no lymphadenopathy, no JVD Effort: mildly labored Ascultation: Bilateral: diminished breath sounds, wheezes (faint exp), other ( no accessory muscle use) Percussion: Bilateral: not dull Cardiovascular: regular rate and rhythm, murmur noted Gastrointestinal: normoactive bowel sounds, soft, non-tender, non-distended, other (no HSM) Integumentary: normal Extremities: no cyanosis, no edema, pulses normal, no ischemia or petechiae Neurologic: non-focal exam (grossly), pupils equal and round, CN II-XII normal Psychiatric: other (flat affect) CBC and BMP: 08/24/17 13:47 08/24/17 13:44 ABG, PT/INR, D-dimer: PT/INR, D-dimer D-Dimer 732.74 ng/mlDDU (0-234) H 08/24/17 15:28 Abnormal lab findings: Abnormal Labs 08/24/17 08/24/17 08/24/17 13:44 13:47 15:28 RBC 3.10 L Hgb 9.7 L MCV 99 H RDW 16.2 H Plt Count 518 H Lymph % (Auto) 11.8 L Lymph # 1.1 L Seg Neutrophils % 78.5 H D-Dimer 732.74 H BUN 25 H Glucose 209 H Calcium 8.2 L Chest x-ray: image reviewed (no focal infiltrate)
--- NOTE | 2017-08-30 12:22 | Vascular Lab Report ---
LOWER EXTREMITY VENOUS DUPLEX: REASON FOR EXAM: DVT. COMMENTS ON THE RIGHT: All veins visualized are freely compressible without evidence of internal echogenicity. Flow is spontaneous and phasic throughout. COMMENTS ON THE LEFT: All veins visualized are freely compressible without evidence of internal echogenicity. Flow is spontaneous and phasic throughout. IMPRESSION: No evidence of acute or chronic deep venous thrombosis in either lower extremity.
--- NOTE | 2017-08-30 12:31 | Vascular Lab Report ---
LOWER EXTREMITY ARTERIAL DUPLEX: REASON FOR EXAM: Peripheral arterial disease. COMMENTS ON THE RIGHT: Biphasic waveforms are seen proximally. Biphasic waveforms are seen distally. Tibial artery disease is identified. Scattered plaque is seen throughout. Findings are consistent with mildly abnormal perfusion. COMMENTS ON THE LEFT: Biphasic waveforms are seen proximally. Biphasic waveforms are seen distally. Mild tibial artery occlusive disease identified. Scattered plaque is seen throughout. Findings are consistent with mildly abnormal perfusion. IMPRESSION: Mild arterial occlusive disease in both lower extremities.
== END 2017-08-28 18:15 | disposition home or self-care (01) | DRG 193 ==
LOC: ED 13:24 → 2B-ACE 15:13
PROVIDERS: ADMIT Internal Medicine; ATTEND Internal Medicine
DX: J18.9 Pneumonia, unspecified organism (principal); J96.21 Acute and chronic respiratory failure with hypoxia; J44.1 Chronic obstructive pulmonary disease with (acute) exacerbation; J44.0 Chronic obstructive pulmonary disease with (acute) lower respiratory infection; F03.90 Unspecified dementia, unspecified severity, without behavioral disturbance, psychotic disturbance, mood disturbance, and anxiety; I25.10 Atherosclerotic heart disease of native coronary artery without angina pectoris; Z66 Do not resuscitate; E11.9 Type 2 diabetes mellitus without complications; I10 Essential (primary) hypertension; I25.2 Old myocardial infarction; Z87.891 Personal history of nicotine dependence; Z86.73 Personal history of transient ischemic attack (TIA), and cerebral infarction without residual deficits; Z88.0 Allergy status to penicillin
CPT/HCPCS: 36415; 71046; 71275; 80048; 85025; 85379; 87040; 93005; 93010; 93925; 93970; 94640; 94760; 96365; 96375; A9270-GY; J1956; J2920; Q9967